=== PATIENT | female | born 1960 | race Caucasian/White ===

== ENCOUNTER 2024-07-04 14:23 | Emergency (ER) | payer MEDICARE, OTHER ==
[~2024-07-04] VITALS: Ht 152.4 cm; Wt 86.4 kg
[2024-07-04 14:31] VITALS: TEMP 98.5
[2024-07-04] MEDS ORDERED: ATOR20TA PO (14:34)
[2024-07-04] MEDS ORDERED: ASPI-1444 PO (14:34)
[2024-07-04] MEDS ORDERED: LISI-893 PO (14:34)
[2024-07-04] MEDS ORDERED: METF-1211 PO (14:34)
[2024-07-04] MEDS ORDERED: INSLAN SQ (14:34)
[2024-07-04] MEDS: ONDANSETRON HCL 4 MG/2 ML VIAL IM ONE (16:58)
[2024-07-04] MEDS: KETOROLAC TROMETHAMINE 60 MG/2 ML VIAL IM ONE (16:59)
[2024-07-04] MEDS: MORPHINE SULFATE 4 MG/ML SYRINGE IM ONE (16:59)
[2024-07-04] MEDS ORDERED: IBUP-1554 PO (17:43)
[2024-07-04] MEDS ORDERED: HYDR-4062 PO (17:43)
[2024-07-04 18:30] VITALS: BP 137/75; PULSE 66; RESP 16; O2SAT 98
== END 2024-07-04 18:46 | disposition home or self-care (01) ==
LOC: EMS 14:25
DX: S42.291A Other displaced fracture of upper end of right humerus, initial encounter for closed fracture (principal); E11.9 Type 2 diabetes mellitus without complications; I10 Essential (primary) hypertension; E78.00 Pure hypercholesterolemia, unspecified; Z79.82 Long term (current) use of aspirin; Z79.899 Other long term (current) drug therapy; W01.0XXA Fall on same level from slipping, tripping and stumbling without subsequent striking against object, initial encounter; Y93.89 Activity, other specified; Y92.89 Other specified places as the place of occurrence of the external cause; Y99.8 Other external cause status
CPT/HCPCS: 99285; 73200; 73030; 76377; 82962; 96372; J1885; J2270; J2405